=== PATIENT | male | born 1945 | race African-American/Black ===

== ENCOUNTER 2017-06-23 16:20 | Observation (INO) | payer OTHER, MEDICAID ==
[~2017-06-23] VITALS: Ht 172.7 cm; Wt 72.6 kg
[~2017-06-23 16:20] MED LIST: insulin; lisinopril; simvastatin
--- NOTE | 2017-06-23 16:20 | NUR ---
Patient BIBA ACLS, triaged by RN. Waiting for an available bed.
[2017-06-23 16:36] VITALS: BP 161/79
--- NOTE | 2017-06-23 16:50 | NUR ---
Patient transferred to OF4. RN evaluating patient at bedside.
--- NOTE | 2017-06-23 16:50 | NUR ---
PATIENT BIB EMS TO ED FOUND SITTING OUTSIDE 24 HOUR FITNESS/TIRED WALKING. PER HAND TOOL LAPPER,TOOK UNKNOWN PAIN MEDS. MUMBLING/SLEEPING. FIRE GAVE NARCAN 0.5MG IV WITH NO CHANGE.ERMD MADE AWARE. PINPOINT PUPILS.BS 114 DENIES N/V/D; SKIN IS PINK/WARM/DRY; LUNGS CLEAR BL; HR EVEN AND REGULAR; PT DENIES ANY FEVER, CP, SOB, OR COUGH AT THIS TIME; PATIENT STATES PAIN OF 0/10 AT THIS TIME; VSS; PATIENT POSITIONED FOR COMFORT; HOB ELEVATED; BEDRAILS UP X2; BED DOWN. ER MD MADE AWARE OF PT STATUS.
[2017-06-23] MEDS ORDERED: DEXTROSE 50% 50 ML SYR IVP ONE (17:05)
[2017-06-23] MEDS ORDERED: NALOXONE 0.4 MG/ML VIAL ONE (17:11)
[2017-06-23] MEDS ORDERED: NALOXONE 0.4 MG/ML VIAL IVP ONE (17:20)
[2017-06-23] MEDS ORDERED: NACL 0.9% 1,000 ML IV ONE (17:20)
[2017-06-23 17:46] LABS: BASOPHILS # (AUTO) 0.2 K/uL (0.00-0.22); BASOPHILS % (AUTO) 1.7 % (0.0-2.0); EOSINOPHILS # (AUTO) 0.2 K/uL (0-0.4); EOSINOPHILS % (AUTO) 1.8 % (0.0-4.0); HEMATOCRIT 37.6 % (36-52); LYMPHOCYTES # (AUTO) 1.7 K/uL (2.0-11.5); LYMPHOCYTES % (AUTO) 17.4 % (20.5-51.1); MEAN CORPUSCULAR HEMOGLOBIN 30 pg (27-31); MEAN CORPUSCULAR HGB CONC 32 g/dL (33-37); MEAN CORPUSCULAR VOLUME 95 fL (80-94); MONOCYTES # (AUTO) 0.7 K/uL (0.8-1.0); MONOCYTES % (AUTO) 7.2 % (1.7-9.3); NEUTROPHILS # (AUTO) 7.2 K/uL (1.8-7.7); NEUTROPHILS % (AUTO) 71.9 % (42.2-75.2); PLATELET COUNT (AUTO) 154 K/uL (140-450); RED BLOOD CELL COUNT(AUTO) 3.98 MIL/uL (4.20-6.10); RED CELL DISTRIBUTION WIDTH 14.1 % (11.6-13.7)
--- NOTE | 2017-06-23 17:49 | NUR ---
catechist at bedside.
[2017-06-23 18:04] LABS: ACETAMINOPHEN 0.9 ug/ml (10-30); ALBUMIN 3.6 g/dL (3.4-5.0); ANION GAP 13.2 (8-16); ASPARTATE AMINOTRANSFERASE 10 U/L (15-37); CARBON DIOXIDE 23.2 mmol/L (21-32); CHLORIDE 108 mmol/L (98-107); CREATININE 0.9 mg/dL (0.7-1.3); GLUCOSE 146 mg/dL (74-106); POTASSIUM 4.4 mmol/L (3.5-5.1); SODIUM SERUM 140 mmol/L (136-145); TOTAL BILIRUBIN 0.2 mg/dL (0.0-1.0); UREA NITROGEN, BLOOD 16 mg/dL (7-18)
[2017-06-23 18:06] LABS: SALICYLATE < 2.8 mg/dL (2.8-20.0)
[2017-06-23 19:02] LABS: APPEARANCE,URINE CLEAR (CLEAR); BILIRUBIN,URINE NEGATIVE (NEGATIVE); COLOR,URINE YELLOW (YELLOW); LEUKOCYTE ESTERASE ,URINE NEGATIVE (NEGATIVE); NITRITE, URINE NEGATIVE (NEGATIVE); UGLUCOSE TRACE (NEGATIVE)
[2017-06-23 19:05] LABS: BLOOD, URINE NEGATIVE (NEGATIVE)
[2017-06-23] MEDS ORDERED: NALOXONE 0.4 MG/ML VIAL IVP PRN (19:05)
[2017-06-23] MEDS ORDERED: ACETAMINOPHEN 325 MG TAB PO PRN (19:05)
--- NOTE | 2017-06-23 19:10 | NUR ---
REPORT RECEIVED FROM STEVEN OCONNOR.
[2017-06-23 19:12] LABS: BARBITURATE, URINE NEG. ng/ml (NEG <=200); BENZODIAZEPINE, URINE NEG. ng/mL (NEG <=200); CANNABINOID, URINE NEG. ng/mL (NEG <=50); COCAINE, URINE NEG. ng/mL (NEG <=300); OPIATE, URINE POS. ng/mL (NEG <=2000); PHENCYCLIDINE SCREEN,URINE NEG. ng/mL (NEG <=25)
--- NOTE | 2017-06-23 19:44 | NUR ---
Patient will be admitted to care of DR DI ANDRE. Admited to MS. Will go to room 105A. Belongings list completed. Report to STEVEN AGUILLON.
--- NOTE | 2017-06-23 20:35 | NUR ---
MADE AWARE BY CHARGE NURSE THAT PT ARRIVED TO THE UNIT AT THIS TIME.
[2017-06-23 21:50] VITALS: BP 143/71
--- NOTE | 2017-06-23 21:50 | NUR ---
RECEIVED REPORT FROM CHARGE NURSE. ASSUME PT CARE AT THIS TIME. Admitted from ER, with chief complaint of ALOC, DX OPIOID OVERDOSE. 72 y/o, Male, SLEEPY BUT AROUSABLE, MUMBLES WORDS, BEDREST AT THIS TIME. PT STATED HE "TOOK 2 GREEN TABLETS." PT DENIES ANY PAIN OR SOB, RR 14 UNLABORED. VS NOTED, NO S/S OF ACUTE DISTRESS. IV ACCESS ASYMPTOMATIC, PATENT AND INTACT. SALINE LOCKED. DISCUSSED AND REVIEWED PLAN OF CARE WITH PT. WILL CONTINUE WITH CONSTANT REINFORCEMENT. oriented to call light, bed, phone,television, bathroom, smoking policy, visiting hours, procedures, ID bracelet on. Belongings list checked. ALL NEEDS MET. SAFETY MEASURES ENSURED. CALL LIGHT WITHIN REACH. WILL CONTINUE TO MONITOR.
--- NOTE | 2017-06-23 22:10 | NUR ---
BLOOD SUGAR 91 AT THIS TIME, CONDITION STABLE. NO S/S OF ACUTE DISTRESS.
[2017-06-24] VITALS: BP 140/58
--- NOTE | 2017-06-24 00:11 | NUR ---
PT SLEEPING COMFORTABLY, AROUSABLE, MUMBLES. NO S/S OF ACUTE DISTRESS. SPO2 99% AT ROOM AIR, RR 16 UNLABORED. ALL NEEDS MET. SAFETY MEASURES ENSURED. CALL LIGHT WITHIN REACH. WILL CONTINUE TO MONITOR.
[2017-06-24] MEDS ORDERED: INSULIN LISPRO SLIDING SCALE 100 UNITS/ML VIAL SUBQ PRN ×2 (00:15→01:35)
--- NOTE | 2017-06-24 01:33 | NUR ---
CALLED DR ANDRE, CLARIFIED ORDER OF ADDITIONAL ORDERS STATING CONTINUE HOME MEDS. MADE AWARE THAT THE PT'S MED REC ONLY STATES INSULIN, LISINOPRIL AND SIMVASTATIN. PT IS SLEEPING AT THIS TIME, AROUSABLE BUT MUMBLES AND UNABLE TO RECALL DOSES AND FREQUENCY. STATED IT IS OK TO WAIT UNTIL MORNING FOR SOMEONE TO BRING IN PT'S MEDS. ALSO MADE MD AWARE OF PT'S REGULAR DIET AND HX DM. ORDERS RECEIVED FOR ACCUCHECKS QACHS WITH SLIDING SCALE INSULIN PER PROTOCOL AND D50 IVP PRN, CCHO60 DIET, AND MRSA NARES SCREEN. MADE MD AWARE OF PT'S HR 53-55 WHILE SLEEPING, PT IS ON MEDSURG. STATED IT IS FINE LONG VITALS ARE STABLE. ORDERS PENDING, WILL CARRY OUT.
[2017-06-24] MEDS ORDERED: DEXTROSE 50% 50 ML SYR IVP PRN (01:35)
--- NOTE | 2017-06-24 04:15 | NUR ---
PT SLEEPING COMFORTABLY, AROUSABLE. NO S/S OF ACUTE DISTRESS. SPO2 97% AT ROOM AIR, RR 16 UNLABORED. ALL NEEDS MET. SAFETY MEASURES ENSURED. CALL LIGHT WITHIN REACH. WILL CONTINUE TO MONITOR.
--- NOTE | 2017-06-24 06:16 | NUR ---
CHECKED ON PT. PT IS MORE AWAKE AND ALERT NOW, AOX4, ABLE TO VERBALIZE NEEDS, PT ABLE TO ANSWER QUESTIONS AT THIS TIME. UPDATED PT ADMISSION/INTERVIEW ASSESSMENTS.
[2017-06-24] MEDS: BLOOD GLUCOSE MONITORING 1 DEV DEV FS SCH ×2 (06:27→12:27)
--- NOTE | 2017-06-24 06:28 | NUR ---
BLOOD SUGAR CHECKED, 70 AT THIS TIME. PT ASYMPTOMATIC, PT STATED "I FEEL FINE." PROVIDED PT WITH SNACKS. CONDITION STABLE.
[2017-06-24] MEDS ORDERED: PNEUMOCOCCAL VACCINE 23 MCG/0.5 ML VIAL IMVAC PRN (06:40)
[2017-06-24 07:09] LABS: BASOPHILS # (AUTO) 0.2 K/uL (0.00-0.22); BASOPHILS % (AUTO) 2.6 % (0.0-2.0); EOSINOPHILS # (AUTO) 0.2 K/uL (0-0.4); EOSINOPHILS % (AUTO) 2.2 % (0.0-4.0); HEMATOCRIT 38.2 % (36-52); HEMOGLOBIN 12.6 g/dL (12.0-18.0); LYMPHOCYTES % (AUTO) 26.9 % (20.5-51.1); MEAN CORPUSCULAR HEMOGLOBIN 31 pg (27-31); MEAN CORPUSCULAR HGB CONC 33 g/dL (33-37); MEAN CORPUSCULAR VOLUME 93 fL (80-94); MONOCYTES # (AUTO) 0.5 K/uL (0.8-1.0); MONOCYTES % (AUTO) 6.1 % (1.7-9.3); NEUTROPHILS # (AUTO) 4.6 K/uL (1.8-7.7); NEUTROPHILS % (AUTO) 62.2 % (42.2-75.2); PLATELET COUNT (AUTO) 152 K/uL (140-450); RED BLOOD CELL COUNT(AUTO) 4.09 MIL/uL (4.20-6.10); RED CELL DISTRIBUTION WIDTH 13.8 % (11.6-13.7); WHITE BLOOD COUNT (AUTO) 7.5 K/uL (4.8-10.8)
--- NOTE | 2017-06-24 07:21 | NUR ---
BLOOD SUGAR RECHECKED, 100; ENDORSED PLAN OF CARE TO AM NURSE. CONDITION STABLE.
[2017-06-24 07:22] LABS: ANION GAP 11.4 (8-16); CARBON DIOXIDE 24.7 mmol/L (21-32); CHLORIDE 111 mmol/L (98-107); CREATININE 0.7 mg/dL (0.7-1.3); GLUCOSE 81 mg/dL (74-106); POTASSIUM 4.1 mmol/L (3.5-5.1); SODIUM SERUM 143 mmol/L (136-145); UREA NITROGEN, BLOOD 10 mg/dL (7-18)
[2017-06-24 08:00] VITALS: BP 167/70
--- NOTE | 2017-06-24 09:48 | NUR ---
REPORT RECEIVED FROM JEWEL HOLE FINISH OPENER NURSE, PT SLEEPING, RESP EVEN UNLABORED ON RA, PT AROUSES EASILY BY VOICE, INITIAL ASSESSMENT DONE, DENIES PAIN OR DISCOMFORT, PLAN OF CARE REVIEWED, PT VERBALIZED UNDERSTANDING, CALL HADDAD WITHIN REACH, SIDE RAILS UP X2, BED LOCKED IN LOW POSITION, WILL CONTINUE TO MONITOR.
--- NOTE | 2017-06-24 09:49 | NUR ---
PT REPORTS RIGHT LOWER BACK/HIP PAIN, CHRONIC PAIN, PT REQUESTS PAIN MEDS, RATES PAIN 04/16, PT REFUSES TYLENOL, PT REQUESTS "STRONGER" MEDICATION, WILL NOTIFY MD.
--- NOTE | 2017-06-24 13:13 | NUR ---
PATIENT SLEEPING COMFORTABLY. RESPIRATIONS UNLABORED, ON ROOM AIR. NO ACUTE DISTRESS NOTED. SKIN COLOR WITHIN NORMAL LIMITS. CALL LIGHT WITHIN REACH. SIDE RAILS UP X2. BED LOCKED IN LOW POSITION. AWAITING MD BYRNES. WILL CONTINUE TO MONITOR.
[2017-06-24] MEDS ORDERED: TRAM50TA94 PO (13:51)
--- NOTE | 2017-06-24 14:30 | NUR ---
DISCHARGE INSTRUCTIONS AND RX GIVEN AND EXPLAINED TO PT, PT VERBALIZED FULL UNDERSTANDING, IV ALREADY DC'D, NO BLEEDING NOTED AT THE SITE, PT UP OUT OF BED WITHOUT PROBLEM, AMBULATES WITH STEADY GAIT WITH CANE, PT ESCORTED [facility] TO [facility], BUS PASS PROVIDED FOR TRANSPORTATION.
== END 2017-06-24 14:30 | disposition home or self-care (01) ==
LOC: MED 16:20 → MTU 19:01
PROVIDERS: ADMIT Hospitalist; ATTEND Hospitalist
DX: T40.601A Poisoning by unspecified narcotics, accidental (unintentional), initial encounter (principal); E11.9 Type 2 diabetes mellitus without complications; I10 Essential (primary) hypertension; M25.551 Pain in right hip
CPT/HCPCS: 36415; 71010; 80048; 80053; 80305; 81003; 82140; 82948; 85025; 87081; 93005; 96361; 96374; 96375; 99285; G0378; G0480; G0482; J1815; J2310; Q0092

== ENCOUNTER 2017-06-25 22:21 | Emergency (ER) | payer OTHER, MEDICAID ==
[~2017-06-25] VITALS: Ht 167.6 cm; Wt 65.8 kg
[~2017-06-25 22:21] MED LIST changes: +TRAM50TA94 PO
--- NOTE | 2017-06-25 22:29 | NUR ---
PT BIBA BLS TAKEN TO BED 6.
--- NOTE | 2017-06-25 22:30 | NUR ---
72Y M BIBA Found by neighbors crawling around outside. No evidence of injury. Here 2 days ago for opiate OD. Bilat pupils constricted, speach slurred. PT DENIES N/V/D, SOB,CP AT THE MOMENT. PT DENIES ANY MEDICAL HX OR ALLERGIES.
[2017-06-25 22:31] VITALS: BP 175/103
--- NOTE | 2017-06-25 22:34 | NUR ---
Dr. Sherwood evaluating patient at bedside.
[2017-06-25] MEDS ORDERED: NALOXONE 0.4 MG/ML VIAL IVP ONE (22:40)
[2017-06-25] MEDS ORDERED: NACL 0.9% 1,000 ML IV ONE (23:00)
[2017-06-25 23:57] LABS: HEMATOCRIT 37.7 % (36-52); HEMOGLOBIN 12.6 g/dL (12.0-18.0); MEAN CORPUSCULAR HEMOGLOBIN 31 pg (27-31); MEAN CORPUSCULAR HGB CONC 33 g/dL (33-37); MEAN CORPUSCULAR VOLUME 93 fL (80-94); PLATELET COUNT (AUTO) 153 K/uL (140-450); RED BLOOD CELL COUNT(AUTO) 4.04 MIL/uL (4.20-6.10); WHITE BLOOD COUNT (AUTO) 11.2 K/uL (4.8-10.8)
[2017-06-25 23:58] LABS: APPEARANCE,URINE CLEAR (CLEAR); BILIRUBIN,URINE NEGATIVE (NEGATIVE); BLOOD, URINE NEGATIVE (NEGATIVE); COLOR,URINE YELLOW (YELLOW); LEUKOCYTE ESTERASE ,URINE NEGATIVE (NEGATIVE); NITRITE, URINE NEGATIVE (NEGATIVE); UGLUCOSE NEGATIVE (NEGATIVE)
[2017-06-26 00:04] LABS: BARBITURATE, URINE NEG. ng/ml (NEG <=200); BENZODIAZEPINE, URINE POS. ng/mL (NEG <=200); CANNABINOID, URINE NEG. ng/mL (NEG <=50); COCAINE, URINE NEG. ng/mL (NEG <=300); OPIATE, URINE POS. ng/mL (NEG <=2000); PHENCYCLIDINE SCREEN,URINE NEG. ng/mL (NEG <=25)
[2017-06-26] MEDS ORDERED: FLUMAZENIL 0.5 MG/5 ML VIAL IVP ONE ×2 (00:10→00:25)
[2017-06-26 00:14] LABS: ALBUMIN 3.9 g/dL (3.4-5.0); ANION GAP 16.7 (8-16); ASPARTATE AMINOTRANSFERASE 12 U/L (15-37); CARBON DIOXIDE 22.2 mmol/L (21-32); CHLORIDE 108 mmol/L (98-107); CREATININE 1.1 mg/dL (0.7-1.3); GLUCOSE 115 mg/dL (74-106); POTASSIUM 3.9 mmol/L (3.5-5.1); SODIUM SERUM 143 mmol/L (136-145); TOTAL BILIRUBIN 0.3 mg/dL (0.0-1.0); UREA NITROGEN, BLOOD 12 mg/dL (7-18)
[2017-06-26 00:15] LABS: ACETAMINOPHEN < 0.5 ug/ml (10-30); SALICYLATE < 2.8 mg/dL (2.8-20.0)
[2017-06-26 00:18] LABS: LYMPHOCYTES % (MANUAL) 15 % (20-46); MONOCYTES % (MANUAL) 2 % (5-12)
--- NOTE | 2017-06-26 00:26 | NUR ---
PT ALERT AND ORIENTED TO NAME, PLACE, DATE, BUT NOT EVENT. ER MD DR SHETTY MADE AWARE.
--- NOTE | 2017-06-26 00:26 | NUR ---
Dr. Sherwood re-evaluating patient at bedside.
[2017-06-26 01:24] VITALS: BP 136/94
--- NOTE | 2017-06-26 01:24 | NUR ---
Patient discharged with v/s stable. Written and verbal after care instructions given and explained. Patient verbalized understanding. Ambulatory with steady gait. All questions addressed prior to discharge. Advised to follow up with PMD.
--- NOTE | 2017-06-26 01:24 | NUR ---
IV removed, catheter intact and site benign. Applied folded 4x4 gauze and tape to stop bleeding.
== END 2017-06-26 01:24 | disposition home or self-care (01) ==
LOC: MED 22:21
DX: R41.82 Altered mental status, unspecified (principal); F15.129 Other stimulant abuse with intoxication, unspecified; E11.9 Type 2 diabetes mellitus without complications; I10 Essential (primary) hypertension; Z79.899 Other long term (current) drug therapy
CPT/HCPCS: 36415; 70450; 71010; 80053; 80305; 81003; 84484; 85025; 93005; 96361; 96374; 96375; 99285; G0480; G0482; J2310; J3490; J7030